=== PATIENT | female | born 1950 | race Caucasian/White ===

== ENCOUNTER → 2023-09-04 13:16 | Outpatient (REF) | payer MEDICARE, OTHER, SELFPAY | LOC: WDC 13:16 | PROVIDERS: ATTENDING PHYSICIAN Internal Medicine | DX: Z78.0 Asymptomatic menopausal state (principal); Z12.31 Encounter for screening mammogram for malignant neoplasm of breast | CPT/HCPCS: 77063; 77067; 77080 ==

== ENCOUNTER → 2024-11-10 08:34 | Outpatient (REF) | payer MEDICARE, OTHER, SELFPAY | LOC: WDC 08:34 | PROVIDERS: ATTENDING PHYSICIAN Internal Medicine | DX: Z12.31 Encounter for screening mammogram for malignant neoplasm of breast (principal) | CPT/HCPCS: 77063; 77067 ==